=== PATIENT | male | born 1960 | race Caucasian/White ===

== ENCOUNTER 2018-12-28 13:35 | Outpatient (CLI) | payer OTHER ==
--- NOTE | 2018-12-28 13:58 | RAD ---
Left hip 2 views HISTORY: Left hip pain. FINDINGS: There is complete loss of joint space with cortical remodeling and subcortical cysts on eac h side of the joint. Severe osteophytosis and subchondral sclerosis. Flattening of the articular surface femoral head. No acute fracture or dislocation. Metallic clips overlie the left pelvis. Metal lic wire at the upper central sacrum. Phleboliths project over the pelvis. Dystrophic calcification over the lateral aspect of the upper thigh. IMPRESSION: Severe osteoarthritic changes left hip.
== END 2018-12-28 13:36 | disposition home or self-care (01) ==
LOC: BICRAD 13:35
PROVIDERS: ATTEND Family Medicine
DX: M25.552 Pain in left hip (principal); M16.12 Unilateral primary osteoarthritis, left hip

== ENCOUNTER 2019-03-03 10:15 | Day surgery (SDC) | payer OTHER ==
[2019-03-02 15:26] VITALS: BMI 34.0
[2019-03-03 11:32] LABS: #Basophils 0.1 thou/uL (0.0-0.2); #Eosinphils 0.1 thou/uL (0.0-0.7); #Monocytes 0.5 thou/uL (0.11-0.59); #Neutrophils 5.1 thou/uL (1.40-6.50); %Basophils 0.7 % (0.0-1.0); %Eosinophils 1.5 % (0.0-10.0); %Lymphocytes 15.3 % (21.0-51.0); %Neutrophils 75.5 % (42.0-75.0); Mean Corpuscular HGB CONC 35.1 g/dL (32.0-36.0); Mean Corpuscular Hemoglobin 30.3 pg (27.0-31.0); Mean Corpuscular Volume 86.3 fL (78.0-98.0); Platelet Count 147 thou/uL (130-400); RBC Distribution Width 12.6 % (11.5-14.5); Red Blood Cell (RBC) Count 4.96 mill/uL (4.70-6.10); White Blood Cell (WBC) Count 6.8 thou/uL (4.8-10.8)
[2019-03-03] MEDS ORDERED: Midazolam HCl 2 mg/2 ml Vial ONE (11:44)
[2019-03-03] MEDS ORDERED: Fentanyl 100 MCG/2 ML VIAL ONE ×4 (11:44→15:07)
[2019-03-03 11:59] LABS: ALT (SGPT) 33 U/L (8-55); AST (SGOT) 30 U/L (5-34); Albumin 4.5 g/dL (3.5-5.0); Alkaline Phosphatase 87 U/L (40-150); Anion Gap 13 mmol/L (10-20); BUN (Urea Nitrogen) 20 mg/dL (8.4-25.7); Bilirubin, Total 1.6 mg/dL (0.2-1.2); Calc. Creatinine Clearance 121 mL/min (70-130); Calcium 10.1 mg/dL (7.8-10.44); Carbon Dioxide 25 mmol/L (22-29); Chloride 101 mmol/L (98-107); Estimated GFR-MDRD 80; Glucose 117 mg/dL (70-105); Potassium 3.9 mmol/L (3.5-5.1); Protein, Total 7.5 g/dL (6.0-8.3); Sodium 135 mmol/L (136-145)
[2019-03-03] MEDS ORDERED: Labetalol HCl 100 MG/20 ML VIAL ONE (15:29)
[2019-03-03] MEDS ORDERED: Bupivacaine HCl 0.5%/Epinephrine 1:200,000/PF 30 ml Vial ONE (16:07)
[2019-03-03] MEDS ORDERED: Lidocaine 1% PF 5 ML VIAL ONE (16:24)
[2019-03-03] MEDS ORDERED: Dexamethasone 20 MG/5 ML VIAL ONE (16:24)
[2019-03-03] MEDS ORDERED: PROPOFOL 200 MG/20 ML VIAL ONE (16:24)
[2019-03-03] MEDS ORDERED: Ondansetron PF 4 MG/2 ML Vial ONE (16:24)
[2019-03-03] MEDS ORDERED: Glycopyrrolate 0.2 MG/ML 5 ML SYRINGE ONE (16:24)
[2019-03-03] MEDS ORDERED: PHENYLEPHRINE-NS 100 MCG/ML 10 ML SYRINGE ONE (16:24)
[2019-03-03] MEDS ORDERED: Rocuronium Bromide 10 MG/ML (10ML VIAL) ONE (16:24)
[2019-03-03] MEDS ORDERED: HYDROcodone/Acetaminophen 5/325 mg Tablet ONE (16:37)
--- NOTE | 2019-03-03 18:24 | OP ---
DATE OF PROCEDURE: 03/03/2019 PREOPERATIVE DIAGNOSIS: Left distal triceps rupture. POSTOPERATIVE DIAGNOSIS: Left distal triceps rupture. PROCEDURE PERFORMED: Open repair of left distal triceps. ANESTHESIA: General with left upper extremity regional block. ESTIMATED BLOOD LOSS: 10 mL. TOURNIQUET TIME: 72 minutes at 250 mmHg. DRAINS: None. SPECIMENS: None. COMPLICATIONS: None. OPERATIVE INDICATIONS: The patient is a pleasant 58-year-old male, who is right-hand dominant, who was performing heavy bench press activity this past week. While trying to push the weight back up, he felt and heard a loud pop about his left elbow with retraction of his triceps muscle proximally. The patient had both clinical and MRI evidence of complete distal triceps rupture off its insertion on the olecranon. Risks and benefits were reviewed including nonoperative as well as surgical treatment. The patient elected to proceed with surgery, and appropriate written consent was obtained. DESCRIPTION OF PROCEDURE: The patient's left upper extremity was marked in the preoperative holding area, and a regional block was performed by the Anesthesia Team. He was transported to the operative suite in a supine position, where general anesthesia was induced. He received a preoperative dose of IV antibiotics for surgical prophylaxis. He was then carefully transitioned to the right lateral decubitus position, where an axillary role was placed, and head and neck were secured in neutral alignment. All bony prominences were well padded, and frias bag was used for positioning. The left upper extremity was then draped over an arm bolster. A nonsterile upper arm tourniquet was applied, and the left upper extremity was prepped and draped in usual sterile fashion for this type of procedure. A surgical time-out was performed correctly identifying the patient, procedure, and laterality, and all members of the team were in agreement. After application of Esmarch dressing, the tourniquet was insufflated. A longitudinal incision was then made about 5 cm proximal and distal to the olecranon. We did curve the incision laterally about the tip of the elbow. Full-thickness skin flaps were then developed in the medial and lateral direction. We then incised the deep fascia both proximally and distally over the subcutaneous border of the ulna. We exposed the proximal ulna subperiosteally for later triceps repair. After incising the deep fascia proximally, we identified the stump of the triceps tissue. We were able to mobilize this and retracted out the incision with use of Allis clamps. We then manually released all adhesions about the triceps tendon. We then sharply transected the distal 5 mm or so of tendon with residual avulsion fracture bone. We resected back down to healthy-appearing tendon tissue. Next, we turned our attention towards the insertion of the triceps on the ulna. The area was then thoroughly debrided with rongeur and curettes, removed all remaining fibrous and tendon tissue down to healthy bleeding cancellous bone. Once prepared, we then punched and tapped on the radial and ulnar aspects for a 4.75-mm SwiveLock anchor. This was then inserted. We then sequentially passed the #2 FiberWire through the triceps at the anatomic footprint, about 2 cm proximal to the distal end. All 4 limbs of the #2 FiberWire were then passed in horizontal mattress fashion. Then, all 4 limbs of the FiberTape sutures were then passed just proximal to the FiberWire sutures. We were then able to reduce the triceps tendon down to the footprint on the ulna anatomically, and the FiberWires were then secured. We then drilled and tapped for our lateral row anchors on the subcutaneous border of the ulna posteriorly. We then brought limbs from each of the anchors down to a radial and ulnar lateral row anchor giving us complete footprint coverage for our triceps repair. Once secured, we had anatomic quaker of the triceps tendon. He had motion from 0 to 100 degrees without any evidence of gapping at the repair site. The wound was then thoroughly irrigated with sterile saline. The deep fascia was then reapproximated with interrupted 0 Vicryl sutures. The wound was then thoroughly irrigated, and the skin was then closed meticulously in a layered fashion with 2-0 Vicryl and interrupted 3-0 nylon sutures. Xeroform, 4x4's, soft roll, and a posterior Ortho-Glass splint were then applied. General anesthesia was removed, and tourniquet was removed. The patient tolerated the procedure well without complication. POSTOPERATIVE PLAN: The patient will be discharged with Tylenol No. 3 and Zofran. He will follow up in 1 week for splint removal and transition to hinged elbow brace. He is nonweightbearing in left upper extremity. He keeps wound clean and dry. Job ID: [id number]
== END 2019-03-03 17:30 | disposition home or self-care (01) ==
LOC: SDC 10:15
PROVIDERS: ATTEND Orthopaedic Surgery
PROC: 0LM40ZZ Reattachment of Left Upper Arm Tendon, Open Approach (ICD-10-PCS; principal; 2019-03-03)
DX: S46.312A Strain of muscle, fascia and tendon of triceps, left arm, initial encounter (principal); I10 Essential (primary) hypertension; Z79.82 Long term (current) use of aspirin; Z79.899 Other long term (current) drug therapy; X50.0XXA Overexertion from strenuous movement or load, initial encounter; Y93.B3 Activity, free weights
CPT/HCPCS: 80053; 85025; C1713; J0670; J0690; J1100; J2001; J2250; J2405; J2704; J3010

== ENCOUNTER 2025-04-09 05:32 | Inpatient (IN) | payer MEDICARE ==
[2025-04-04 13:41] LABS: #Basophils 0.06 10x3/uL (0.0-0.2); #Eosinophils 0.09 10x3/uL (0.0-0.7); #Monocytes 0.80 10x3/uL (0.11-0.59); #Neutrophils 9.61 10x3/uL (1.40-6.50); %Basophils 0.5 % (0.0-1.0); %Eosinophils 0.8 % (0.0-10.0); %Lymphocytes 9.9 % (21.0-51.0); %Monocytes 6.8 % (0.0-10.0); %Neutrophils 81.6 % (42.0-75.0); Hematocrit 46.3 % (42.0-52.0); Hemoglobin 16.1 g/dL (14.0-18.0); Mean Corpuscular Hemoglobin 28.9 pg (27.0-31.0); Mean Corpuscular Volume 83.0 fL (78.0-98.0); Platelet Count 237 10x3/uL (130-400); Red Blood Cell (RBC) Count 5.58 mill/uL (4.70-6.10); White Blood Cell (WBC) Count 11.78 10x3/uL (4.8-10.8)
[2025-04-04 13:55] LABS: INR-International Normal Ratio 1.0; Prothrombin Time 13.7 sec (12.0-14.7)
[2025-04-04 13:57] LABS: ALT (SGPT) 70 U/L (Less than 45); AST (SGOT) 46 U/L (11-34); Albumin 4.3 g/dL (3.1-4.5); Alkaline Phosphatase 102 U/L (40-110); Anion Gap 15 mmol/L (10-20); BUN (Urea Nitrogen) 21 mg/dL (8.4-25.7); Bilirubin, Total 1.8 mg/dL (0.3-1.2); Calc. Creatinine Clearance 0 mL/min (70-130); Calcium 9.9 mg/dL (7.8-10.44); Carbon Dioxide 22 mmol/L (23-31); Chloride 103 mmol/L (98-107); Globulin 3.4 g/dL (2.4-3.5); Glucose 163 mg/dL (80-115); Potassium 3.8 mmol/L (3.5-5.1); Sodium 136 mmol/L (136-145)
[2025-04-09] MEDS ORDERED: Vancomycin HCl 1.5 GM VIAL ONE (06:21)
[2025-04-09] MEDS ORDERED: Acetaminophen 500 MG TAB ONE (06:21)
[2025-04-09] MEDS ORDERED: Tranexamic Acid 1,000 MG/10 ML VIAL ONE (06:21)
[2025-04-09] MEDS ORDERED: Rocuronium Bromide 10 MG/ML (10ML VIAL) ONE ×2 (06:49→09:24)
[2025-04-09] MEDS ORDERED: Lidocaine 1% PF 5 ML VIAL ONE (06:49)
[2025-04-09] MEDS ORDERED: PROPOFOL 20 ML ONE (06:49)
[2025-04-09] MEDS ORDERED: CEFAZOLIN 2 GM VIAL ONE (07:02)
[2025-04-09] MEDS ORDERED: PHENYLEPHRINE-NS 100 MCG/ML 10 ML SYRINGE ONE (09:24)
[2025-04-09] MEDS ORDERED: Ondansetron PF 4 MG/2 ML Vial ONE ×2 (09:35→11:00)
[2025-04-09] MEDS ORDERED: SUGAMMADEX SODIUM 200 MG/2 ML VIAL ONE (09:57)
[2025-04-09] MEDS ORDERED: diphenhydrAMINE 25 MG CAP PO PRN (10:52)
[2025-04-09] MEDS ORDERED: Ondansetron PF 4 MG/2 ML Vial IVP PRN (10:52)
[2025-04-09] MEDS ORDERED: Acetaminophen 325 MG TAB PO SCH (10:52)
[2025-04-09] MEDS: Ketorolac Tromethamine 30 MG (1 mL) VIAL IVP SCH (12:59)
[2025-04-09] MEDS: Acetaminophen 500 MG TAB PO SCH (13:03)
[2025-04-09] MEDS: oxyCODONE 5 MG TAB PO PRN (14:44)
[2025-04-09] MEDS: Ferrous Gluconate 324 MG TAB PO SCH (19:35)
[2025-04-09] MEDS: Famotidine 20 MG TAB PO SCH (19:35)
[2025-04-09] MEDS: Senokot S 8.6-50 MG TAB PO SCH (19:36)
[2025-04-09] MEDS ORDERED: Aspirin 81 mg Enteric Coated Tablet PO SCH (21:00)
[2025-04-10] MEDS: oxyCODONE 5 MG TAB PO PRN (03:45)
[2025-04-10 05:57] LABS: Hematocrit 31.4 % (42.0-52.0); Hemoglobin 10.9 g/dL (14.0-18.0); Mean Corpuscular Hemoglobin 29.2 pg (27.0-31.0); Mean Corpuscular Volume 84.2 fL (78.0-98.0); Platelet Count 148 10x3/uL (130-400); Red Blood Cell (RBC) Count 3.73 mill/uL (4.70-6.10); White Blood Cell (WBC) Count 10.34 10x3/uL (4.8-10.8)
[2025-04-10 06:07] LABS: Anion Gap 12 mmol/L (10-20); BUN (Urea Nitrogen) 28 mg/dL (8.4-25.7); Calc. Creatinine Clearance 82 mL/min (70-130); Calcium 8.2 mg/dL (7.8-10.44); Carbon Dioxide 24 mmol/L (23-31); Chloride 101 mmol/L (98-107); Glucose 173 mg/dL (80-115); Potassium 4.2 mmol/L (3.5-5.1); Sodium 133 mmol/L (136-145)
[2025-04-10] MEDS: Multivitamin W/ Minerals 1 TAB PO SCH (08:03)
[2025-04-10] MEDS: Aspirin 81 mg Enteric Coated Tablet PO SCH (08:03)
[2025-04-10] MEDS ORDERED: diphenhydrAMINE 25 MG CAP PO PRN (08:39)
[2025-04-10] MEDS ORDERED: Ibuprofen 200 MG TAB PO PRN (08:39)
[2025-04-10] MEDS ORDERED: Acetaminophen 325 MG TAB PO PRN (08:49)
[2025-04-10] MEDS ORDERED: Albuterol 200 PUFF INH INH PRN (08:49)
[2025-04-10] MEDS: Gabapentin 300 MG CAP PO SCH (09:39)
[2025-04-10] MEDS: Losartan 25 MG TAB PO SCH (09:40)
[2025-04-10 17:51] VITALS: BMI 34.2
[2025-04-10] MEDS: Mometasone Furoate 30 PUFF 220 MCG INH SCH (18:45)
[2025-04-11 05:46] LABS: Hematocrit 29.4 % (42.0-52.0); Hemoglobin 10.2 g/dL (14.0-18.0); Mean Corpuscular Hemoglobin 29.1 pg (27.0-31.0); Mean Corpuscular Volume 83.8 fL (78.0-98.0); Platelet Count 138 10x3/uL (130-400); Red Blood Cell (RBC) Count 3.51 mill/uL (4.70-6.10); White Blood Cell (WBC) Count 7.43 10x3/uL (4.8-10.8)
[2025-04-11 07:11] LABS: Anion Gap 12 mmol/L (10-20); BUN (Urea Nitrogen) 20 mg/dL (8.4-25.7); Calc. Creatinine Clearance 111 mL/min (70-130); Calcium 8.5 mg/dL (7.8-10.44); Carbon Dioxide 22 mmol/L (23-31); Chloride 103 mmol/L (98-107); Glucose 190 mg/dL (80-115); Potassium 3.9 mmol/L (3.5-5.1); Sodium 133 mmol/L (136-145)
[2025-04-11 11:49] VITALS: BP 112/68; TEMP 98.4
== END 2025-04-11 12:42 | disposition home or self-care (01) | DRG 470 ==
LOC: SDC 05:32 → SURG B 10:52 → OBSVTOIN 04-10 12:26
PROVIDERS: ADMIT Student in an Organized Health Care Education/Training Program; ATTEND Student in an Organized Health Care Education/Training Program
PROC: 0SR903Z Replacement of Right Hip Joint with Ceramic Synthetic Substitute, Open Approach (ICD-10-PCS; principal; 2025-04-09)
PROC: BW1C1ZZ Fluoroscopy of Lower Extremity using Low Osmolar Contrast (ICD-10-PCS; 2025-04-09)
PROC: 3E03329 Introduction of Other Anti-infective into Peripheral Vein, Percutaneous Approach (ICD-10-PCS; 2025-04-09)
DX: M16.11 Unilateral primary osteoarthritis, right hip (principal); M96.661 Fracture of femur following insertion of orthopedic implant, joint prosthesis, or bone plate, right leg; Z96.651 Presence of right artificial knee joint; Z79.51 Long term (current) use of inhaled steroids; Z79.899 Other long term (current) drug therapy; Z79.82 Long term (current) use of aspirin; I10 Essential (primary) hypertension; I48.91 Unspecified atrial fibrillation; J45.909 Unspecified asthma, uncomplicated; Z93.3 Colostomy status; Z85.038 Personal history of other malignant neoplasm of large intestine; Z87.442 Personal history of urinary calculi; E80.4 Gilbert syndrome; Z98.1 Arthrodesis status
CPT/HCPCS: 36415; 72170; 80048; 80053; 85025; 85027; 85610; 86850; 86900; 86901; C1776; J0665; J1100; J1885; J2405; J2550; J2704; J3010; J3373